=== PATIENT | male | born 1985 | race Caucasian/White ===

== ENCOUNTER 2017-08-16 19:14 | Emergency (ER) | payer SELFPAY ==
[~2017-08-16] VITALS: Ht 188 cm; Wt 84.8 kg
[2017-08-16] MEDS ORDERED: IOHEXOL 350 MG/ML 10 ML VIAL (for RAD DIAG) IVCONTRAST ONE (19:15)
[2017-08-16 19:18] VITALS: BP 152/91; PULSE 92; RESP 16; TEMP 98; O2SAT 100
[2017-08-16] MEDS ORDERED: [UNRECOGNIZED DRUG - REMARK] (19:34)
[2017-08-16] MEDS ORDERED: VENTAER INH (19:34)
[2017-08-16] MEDS ORDERED: PEPT262S PO (19:34)
--- NOTE | 2017-08-16 19:40 | PD ---
HPI Chief Complaint: Abdominal Pain Time Seen by Provider: 19:24 Travel History International Travel<30 days: No Contact w/Intl Traveler<30days: No Traveled to known affect area: No History of Present Illness HPI 32-year-old male here for evaluation of abdominal pain, loose bowel movements, and black stool. Symptoms have been going on for about 2 weeks. Abdominal pain is mid and epigastric, dull, 2 out of 10 currently, worse after eating. He reports taking Pepto-Bismol, however reports noticing black stool prior to using this medication. He occasionally becomes nauseous and vomits. No history of NSAIDs use or overuse. He drinks alcohol occasionally. No history of abdominal surgeries. No recent antibiotic use. No recent travel outside the country. He reports that he went to a walk-in clinic today, and the person who evaluated him was concern for possible internal bleeding and referred them to the emergency department for further evaluation. PFSH Past Medical History Cancer: No Diabetes: No Psychiatric: No Respiratory: Yes (ashtma) Seizures: No Thyroid Disease: No Ulcer: No Social History Alcohol Use: Yes (4 OR 5 SHOTS) Tobacco Use: No Substance Use: No Allergies-Medications (Allergen,Severity, Reaction): Coded Allergies: aspirin (Verified Allergy, Severe, 08/16/17) Reported Meds & Prescriptions Reported Meds & Active Scripts Active Reported [OTC Diarrhea Med] Unknown Dose Pepto-Bismol Liq (Bismuth Subsalicylate) 262 Mg/15 Ml Susp 30 Ml PO PRN Do not exceed 8 doses (240 mL or 16 tbsp) in 24 hours. Ventolin Hfa 18 GM Inh (Albuterol Sulfate) 90 Mcg/Act Aer 2 Puff INH Q4H PRN Review of Systems Except as stated in HPI: all other systems reviewed are Neg Physical Exam Narrative GENERAL: Well-developed, well-nourished, comfortable, no apparent distress. SKIN: Focused skin assessment warm/dry. No pallor. HEAD: Atraumatic. Normocephalic. EYES: Pupils equal and round. No scleral icterus. No injection or drainage. ENT: No nasal bleeding or discharge. Mucous membranes pink and moist. NECK: Trachea midline. No JVD. CARDIOVASCULAR: Regular rate and rhythm. RESPIRATORY: No accessory muscle use. Clear to auscultation. Breath sounds equal bilaterally. GASTROINTESTINAL: Abdomen soft, non-tender, nondistended. Hepatic and splenic margins not palpable. RECTUM: No masses, no fissures, no hemorrhoids, heme-negative brown stool. MUSCULOSKELETAL: No obvious deformities. No clubbing. No cyanosis. No edema. NEUROLOGICAL: Awake and alert. No obvious cranial nerve deficits. Motor grossly within normal limits. Normal speech. PSYCHIATRIC: Appropriate mood and affect; insight and judgment normal. Data Data Last Documented VS Vital Signs Date Time Temp Pulse Resp B/P (MAP) Pulse Ox O2 Delivery O2 Flow Rate FiO2 08/16/17 20:04 98.2 84 17 135/70 (91) 97 Room Air Orders Orders Complete Blood Count With Diff (08/16/17 19:32) Comprehensive Metabolic Panel (08/16/17 19:32) Lipase (08/16/17 19:32) Prothrombin Time / Inr (Pt) (08/16/17 19:32) Act Partial Throm Time (Ptt) (08/16/17 19:32) Ct Abd/Pel W Iv Contrast(Rout) (08/16/17 19:32) Iv Access Insert/Monitor (08/16/17 19:32) Ecg Monitoring (08/16/17 19:32) Oximetry (08/16/17 19:32) Sodium Chloride 0.9% Flush (Ns Flush) (08/16/17 19:45) Type And Screen (08/16/17 19:32) Iohexol 350 Inj (Omnipaque 350 Inj) (08/16/17 19:15) Labs Laboratory Tests Test 08/16/17 19:50 White Blood Count 13.7 TH/MM3 Red Blood Count 5.67 MIL/MM3 Hemoglobin 16.4 GM/DL Hematocrit 48.3 % Mean Corpuscular Volume 85.2 FL Mean Corpuscular Hemoglobin 28.9 PG Mean Corpuscular Hemoglobin Concent 33.9 % Red Cell Distribution Width 12.5 % Platelet Count 227 TH/MM3 Mean Platelet Volume 8.9 FL Neutrophils (%) (Auto) 19.6 % Lymphocytes (%) (Auto) 21.8 % Monocytes (%) (Auto) 4.3 % Eosinophils (%) (Auto) 54.0 % Basophils (%) (Auto) 0.3 % Neutrophils # (Auto) 2.7 TH/MM3 Lymphocytes # (Auto) 3.0 TH/MM3 Monocytes # (Auto) 0.6 TH/MM3 Eosinophils # (Auto) 7.4 TH/MM3 Basophils # (Auto) 0.0 TH/MM3 CBC Comment DIFF FINAL Differential Comment Prothrombin Time 11.2 SEC Prothromb Time International Ratio 1.0 RATIO Activated Partial Thromboplast Time 27.1 SEC Blood Urea Nitrogen 10 MG/DL Creatinine 1.00 MG/DL Random Glucose 91 MG/DL Total Protein 7.3 GM/DL Albumin 4.3 GM/DL Calcium Level 9.5 MG/DL Alkaline Phosphatase 85 U/L Aspartate Amino Transf (AST/SGOT) 12 U/L Alanine Aminotransferase (ALT/SGPT) 19 U/L Total Bilirubin 1.2 MG/DL Sodium Level 139 MEQ/L Potassium Level 3.5 MEQ/L Chloride Level 102 MEQ/L Carbon Dioxide Level 29.1 MEQ/L Anion Gap 8 MEQ/L Estimat Glomerular Filtration Rate 88 ML/MIN Lipase 112 U/L [facility] Medical Decision Making Medical Screen Exam Complete: Yes Emergency Medical Condition: Yes Differential Diagnosis Gastritis, peptic ulcer disease, pancreatitis, hepatobiliary disease, GI bleed, anemia, irritable bowel syndrome Narrative Course Vital signs show heart rate 84, blood pressure 135/70, pulse ox 100% on room air , oral temp of 98.2F. CBC shows WBC 13.7, hemoglobin 16.4, hematocrit 40.3, platelets 227. CMP is unremarkable. Lipase is 112. CT abdomen pelvis: CONCLUSION: 1. 16 mm left renal cyst. 2. Otherwise unremarkable CT of the abdomen and pelvis. Patient was made aware of all findings. He is resting comfortably. There are no peritoneal signs on abdominal exam. At this point he is stable for discharge home with further workup as an outpatient with a primary care physician. He will also be given the name of the on-call preventive medicine physician with whom to follow-up with. He was informed on when to return to the emergency department. He verbalizes understanding and agreement with plan. [facility] Point of Care Internal Pos. & Neg. Controls: Passed Fecal Specimen Occult Blood: Negative Comment Heme-negative brown stool. Diagnosis Primary Impression: Abdominal pain Qualified Codes: R10.9 - Unspecified abdominal pain Additional Impressions: Diarrhea Qualified Codes: R19.7 - Diarrhea, unspecified Renal cyst, left Referrals: Filiberto Perkins MD 1 week Emergency Veterinarian [facility] 1 week Primary Care Physician 3 days Additional Instructions: Follow-up with a primary care physician this week. Follow-up with preventive medicine physician Dr. Perkins or a preventive medicine physician of your choice this week. Return to the emergency department for worsening symptoms or any other concerns. Disposition: 01 DISCHARGE HOME Condition: Stable Mitchel Fox MD Aug 16, 2017 19:40
[2017-08-16] MEDS ORDERED: SODIUM CHLORIDE 0.9% FLUSH 10 ML FLUSH IV FLUSH PRN (19:45)
[2017-08-16 19:58] LABS: AUTOMATED NEUTROPHIL # 2.7 TH/MM3 (1.8-7.7); BASOPHIL % 0.3 % (0.0-2.0); EOSINOPHIL # 7.4 TH/MM3 (0-0.4); HEMATOCRIT 48.3 % (39.0-51.0); HEMO FLAGS DIFF FINAL; LYMPH % 21.8 % (9.0-44.0); MEAN CELL VOLUME 85.2 FL (80.0-100.0); MEAN CORPUSCULAR HEMOGLOBIN 28.9 PG (27.0-34.0); MEAN CORPUSCULAR HGB CONC 33.9 % (32.0-36.0); MONO % 4.3 % (0.0-8.0); NEUT % 19.6 % (16.0-70.0); PLATELET COUNT 227 TH/MM3 (150-450); RED BLOOD COUNT 5.67 MIL/MM3 (4.50-5.90); RED CELL DISTRIBUTION WIDTH 12.5 % (11.6-17.2); WHITE BLOOD COUNT 13.7 TH/MM3 (4.0-11.0)
[2017-08-16 20:04] VITALS: BP 135/70; PULSE 84; RESP 17; TEMP 98.2; O2SAT 97
[2017-08-16 20:05] LABS: CHLORIDE 102 MEQ/L (98-107); POTASSIUM 3.5 MEQ/L (3.5-5.1); SODIUM (NA) 139 MEQ/L (136-145)
[2017-08-16 20:09] LABS: ANION GAP 8 MEQ/L (5-15); APTT (PATIENT) 27.1 SEC (24.3-30.1); BICARBONATE 29.1 MEQ/L (21.0-32.0); BLOOD UREA NITROGEN 10 MG/DL (7-18); PROTHROMBIN TIME - PATIENT 11.2 SEC (9.8-11.6)
[2017-08-16 20:11] LABS: ALT (GPT) 19 U/L (12-78); AST (GOT) 12 U/L (15-37)
[2017-08-16 20:12] LABS: GLOMERULAR FILTRATION RATE 88 ML/MIN (>89)
[2017-08-16 20:13] LABS: TOTAL BILIRUBIN ADULT 1.2 MG/DL (0.2-1.0)
[2017-08-16 20:14] LABS: ALKALINE PHOSPHATASE 85 U/L (45-117)
--- NOTE | 2017-08-16 20:30 | RADRPT ---
EXAM DATE/TIME: 08/16/2017 19:51 [facility] COMPARISON: No previous studies available for comparison. INDICATIONS : Periumbilical pain. Diarrhea and loose stool for 2 weeks. IV CONTRAST: 94 cc Omnipaque 350 (iohexol) IV ORAL CONTRAST: No oral contrast ingested. RADIATION DOSE: 6.21 CTDIvol (mGy) MEDICAL HISTORY : SURGICAL HISTORY : None. ENCOUNTER: Initial ACUITY: 2 weeks PAIN SCALE: 6/10 LOCATION: Umbilical TECHNIQUE: Volumetric scanning of the abdomen and pelvis was performed. Using automated exposure control and ad justment of the mA and/or kV according to patient size, radiation dose was kept as low as reasonably achievable to obtain optimal diagnostic quality images. DICOM format image data is available electro nically for review and comparison. FINDINGS: LOWER LUNGS: The visualized lower lungs are clear. LIVER: Homogeneous density without lesion. There is no dilation of the biliary tree. No calcified gallston es. SPLEEN: Normal size without lesion. PANCREAS: Within normal limits. KIDNEYS: Normal in size and shape. 16 mm left renal cyst is noted. There is no mass, stone or hydronephrosis. ADRENAL GLANDS: Within normal limits. VASCULAR: There is no aortic aneurysm. BOWEL/MESENTERY: The stomach, small bowel, and colon demonstrate no acute abnormality. There is no free intraperitone al air or fluid. The appendix is normal. ABDOMINAL WALL: Within normal limits. RETROPERITONEUM: There is no lymphadenopathy. BLADDER: No wall thickening or mass. REPRODUCTIVE: Within normal limits. INGUINAL: There is no lymphadenopathy or hernia. MUSCULOSKELETAL: Within normal limits for patient age. CONCLUSION: 1. 16 mm left renal cyst. 2. Otherwise unremarkable CT of the abdomen and pelvis. Al Park MD on August 16, 2017 at 20:25 Board Certified Radiologist. This report was verified electronically.
[2017-08-16 20:56] VITALS: BP 136/79
== END 2017-08-16 21:04 | disposition home or self-care (01) ==
LOC: PHED 19:14
DX: R10.9 Unspecified abdominal pain (principal); R19.7 Diarrhea, unspecified; N28.1 Cyst of kidney, acquired
CPT/HCPCS: 74177; 80053; 83690; 85025; 85610; 85730; 86850; 86900; 86901; 99284; Q9967